=== PATIENT | female | born 1985 | race Caucasian/White ===

== ENCOUNTER 2020-10-30 21:51 | Outpatient (CLI) | payer BC ==
[~2020-10-30] VITALS: Ht 172.7 cm; Wt 68.1 kg
[~2020-10-30 21:51] MED LIST: PREN1TAB56
== END 2020-10-30 23:23 | disposition home or self-care (01) ==
LOC: LDOP 21:51
PROVIDERS: ATTEND Obstetrics & Gynecology
DX: O22.03 Varicose veins of lower extremity in pregnancy, third trimester (principal); O88.213 Thromboembolism in pregnancy, third trimester; I82.811 Embolism and thrombosis of superficial veins of right lower extremity; Z3A.35 35 weeks gestation of pregnancy
CPT/HCPCS: 59025

== ENCOUNTER 2020-11-22 16:18 | Inpatient (IN) | payer BC ==
[~2020-11-22] VITALS: Ht 172.7 cm; Wt 68.6 kg
[2020-11-22] MEDS ORDERED: FENTANYL PF 100 MCG/2ML IV PRN (17:00)
[2020-11-22] MEDS ORDERED: ONDANSETRON 2MG/ML, 2ML IVPush PRN (17:00)
[2020-11-22] MEDS ORDERED: LACTATED RINGERS 1,000 ML IV SCH ×2 (17:00)
[2020-11-22] MEDS ORDERED: FENTANYL/BUPIV./NS/PF 250 ML EPIDCONT SCH (17:00)
[2020-11-22] MEDS ORDERED: CALCIUM CARBONATE 500 MG TAB.CHEW PO PRN (17:00)
[2020-11-22] MEDS ORDERED: D5%-LACTATED RINGERS 1,000 ML IV SCH (17:00)
[2020-11-22] MEDS ORDERED: EPHEDRINE 50 MG/ML, 1ML IVPush PRN (17:00)
[2020-11-22] MEDS ORDERED: TERBUTALINE 1 MG/ML, 1ML IVPush PRN (17:00)
[2020-11-22] MEDS ORDERED: LACTATED RINGERS 1,000 ML IVBOLUS PRN (17:00)
[2020-11-22] MEDS ORDERED: PLEASE ENTER HEIGHT AND WEIGHT MC SCH (17:00)
[2020-11-22] MEDS ORDERED: FENTANYL PF 100 MCG/2ML IVPush PRN (17:00)
[2020-11-22] MEDS ORDERED: OXYTOCIN 30U/ 0.9% NaCL 500ML 500 ML IV ONE (17:00)
[2020-11-22] MEDS ORDERED: TERBUTALINE 1 MG/ML, 1ML SQ PRN (17:00)
[2020-11-22] MEDS ORDERED: NALOXONE 0.4 MG/ML, 1ML IVPush PRN (17:00)
[2020-11-22 17:04] VITALS: BP 130/81
[2020-11-22] MEDS ORDERED: OXYTOCIN 30U/ 0.9% NaCL 500ML 500 ML ONE (17:06)
[2020-11-22] MEDS ORDERED: LIDOCAINE 1%, 20ML ONE (17:07)
[2020-11-22] MEDS ORDERED: NEWBORN KIT ONE (17:07)
[2020-11-22] MEDS ORDERED: MISOPROSTOL 200 MCG TABLET ONE (17:07)
[2020-11-22] MEDS ORDERED: ASPI81TA59 PO (17:14)
[2020-11-22 17:21] LABS: BASOPHILS % (AUTO) 0 % (0-1); EOSINOPHILS % (AUTO) 0 % (1-7); LYMPHOCYTES % (AUTO) 14 % (22-44); MEAN CORPUSCULAR HEMOGLOBIN 33.7 pg (27.0-34.8); MEAN CORPUSCULAR HGB CONC 33.5 g/dL (32.4-35.8); MEAN PLATELET VOLUME 11.3 fL (7.4-10.4); MONOCYTES % (AUTO) 7 % (2-9); NEUTROPHILS % (AUTO) 79 % (42-75); PLATELET COUNT 131 x10^3/uL (130-400); RED BLOOD COUNT 3.78 x10^6/uL (3.82-5.3)
[2020-11-22 17:23] LABS: MD NO
[2020-11-22] MEDS ORDERED: BUPIVACAINE 0.25% ONE (17:34)
[2020-11-22] MEDS ORDERED: FENTANYL PF 500 MCG, BUPIVACAINE/PF 0.5%, 30ML 62.5 ML in SODIUM CHLORIDE 0.9% 177.5 ML EPIDCONT SCH (18:00)
[2020-11-22] MEDS: OXYTOCIN 30U/ 0.9% NaCL 500ML 500 ML IV SCH (18:00)
[2020-11-22] MEDS ORDERED: CARBOPROST TROMETHAMINE 250 MCG/ML, 1ML IM PRN (19:00)
[2020-11-22] MEDS ORDERED: DIPH,PERTUSS(ACELL),TET VAC/PF NC IM-VACC PRN (19:00)
[2020-11-22] MEDS ORDERED: ACETAMINOPHEN 325 MG TABLET PO PRN ×2 (19:00)
[2020-11-22] MEDS ORDERED: METHYLERGONOVINE 0.2 MG/ML IM PRN (19:00)
[2020-11-22] MEDS ORDERED: OXYcodone/APAP 5/325MG TABLET PO PRN (19:00)
[2020-11-22] MEDS ORDERED: MISOPROSTOL 200 MCG TABLET PR PRN (19:00)
[2020-11-22] MEDS ORDERED: SIMETHICONE 80 MG CHEW TAB PO PRN (19:00)
[2020-11-22] MEDS ORDERED: OXYcodone IR 5MG TABLET PO PRN (19:00)
[2020-11-22] MEDS: IBUPROFEN 600 MG TABLET PO PRN (19:07)
[2020-11-22 20:20] VITALS: BP 117/63
[2020-11-23] VITALS: BP 113/65
[2020-11-23] MEDS: IBUPROFEN 600 MG TABLET PO PRN ×4 (01:32→19:24)
[2020-11-23 04:54] VITALS: BP 108/71
[2020-11-23] MEDS: OXYTOCIN 30U/ 0.9% NaCL 500ML 500 ML IV SCH (05:00)
[2020-11-23 05:33] LABS: BASOPHILS % (AUTO) 0 % (0-1); EOSINOPHILS % (AUTO) 0 % (1-7); LYMPHOCYTES % (AUTO) 12 % (22-44); MEAN CORPUSCULAR HEMOGLOBIN 34.1 pg (27.0-34.8); MEAN PLATELET VOLUME 10.9 fL (7.4-10.4); MONOCYTES % (AUTO) 7 % (2-9); NEUTROPHILS % (AUTO) 81 % (42-75); PLATELET COUNT 118 x10^3/uL (130-400); RED BLOOD COUNT 3.49 x10^6/uL (3.82-5.3); RED CELL DISTRIBUTION WIDTH 13.8 % (9.6-15.2)
[2020-11-23 05:45] LABS: MD NO
[2020-11-23 08:00] VITALS: BP 122/72
[2020-11-23] MEDS: DOCUSATE 100 MG CAPSULE PO PRN ×2 (08:17→19:24)
[2020-11-23] MEDS ORDERED: PRENATAL VIT/IRON/FA 1 EACH TABLET PO SCH (09:00)
[2020-11-23 14:00] VITALS: BP 107/71
[2020-11-23 18:11] VITALS: BP 108/72
[2020-11-23 19:31] VITALS: BP 117/76
== END 2020-11-23 19:50 | disposition home or self-care (01) | DRG 807 ==
LOC: LDOP 16:18 → LDIP 16:55 → 2NW 20:00
PROVIDERS: ADMIT Obstetrics & Gynecology; ATTEND Obstetrics & Gynecology
PROC: 10E0XZZ Delivery of Products of Conception, External Approach (ICD-10-PCS; principal; 2020-11-22)
DX: O70.0 First degree perineal laceration during delivery (principal); Z37.0 Single live birth; Z3A.39 39 weeks gestation of pregnancy; Z20.822 Contact with and (suspected) exposure to COVID-19
CPT/HCPCS: 36415; 85025; 86592; 86850; 86900; 87635; G0378; J3010; J2590; J7120